=== PATIENT | female | born 1990 | race American Indian/Alaskan Native ===

== ENCOUNTER 2017-05-22 06:51 | Emergency (ER) | payer OTHER ==
[2017-05-22] MEDS ORDERED: Sodium Chloride 0.9% 1,000 ML IV STA ×2 (08:23→09:04)
[2017-05-22] MEDS ORDERED: Morphine 4 mg/ml ISec IVP STA (08:23)
--- NOTE | 2017-05-22 08:27 | ED PDOC ---
Arrival/HPI - General Chief Complaint: Back Pain Time Seen by Provider: 05/22/17 08:03 Historian: Patient - History of Present Illness Narrative History of Present Illness (Text): 05/22/17 11:00 Mahi Mancera is a 27 year old female, whose past medical history includes sickle cell disease, who presents to the emergency department complaining of diffused body pain and mild headache. Patient notes she was recently given a referral to a hemodialysis. Patient denies chest pain, shortness of breath, fever, cough, or vomiting. No other complaints were made and no pain medication was taken. Time/Duration: < week Symptom Onset: Sudden Symptom Course: Unchanged Quality: Aching Activities at Onset: Light Past Medical History - Provider Review Nursing Documentation Reviewed: Yes - Infectious Disease Hx of Infectious Diseases: None - Hematological/Oncological Hx Sickle Cell Disease: Yes - Psychiatric Hx Substance Use: No Family/Social History - Physician Review Nursing Documentation Reviewed: Yes Family/Social History: Unknown Family HX Smoking Status: Never Smoked Hx Alcohol Use: No Hx Substance Use: No Allergies/Home Meds Allergies/Adverse Reactions: Allergies No Known Allergies Allergy (Verified 05/22/17 08:22) Home Medications: Home Meds Medication Instructions Recorded Confirmed Folic Acid [Folic Acid] 1 mg PO DAILY 05/22/17 05/22/17 Review of Systems - Physician Review All systems were reviewed & negative as marked: Yes - Review of Systems Constitutional: absent: Fevers Respiratory: absent: SOB Cardiovascular: absent: Chest Pain Musculoskeletal: Myalgias Neurological: Headache Physical Exam Vital Signs Pulse Resp BP Pulse Ox 05/22/17 10:00 80 18 129/79 98 05/22/17 08:53 78 18 124/79 98 Appearance: Positive for: Well-Appearing, Non-Toxic, Comfortable Pain Distress: Mild Mental Status: Positive for: Alert and Oriented X 3 - Systems Exam Head: Present: Atraumatic, Normocephalic Pupils: Present: PERRL Extroacular Muscles: Present: EOMI Conjunctiva: Present: Normal Mouth: Present: Moist Mucous Membranes Neck: Present: Normal Range of Motion Respiratory/Chest: Present: Clear to Auscultation, Good Air Exchange. No: Respiratory Distress, Accessory Muscle Use Cardiovascular: Present: Regular Rate and Rhythm, Normal S1, S2. No: Murmurs Abdomen: Present: Normal Bowel Sounds. No: Tenderness, Distention, Peritoneal Signs Upper Extremity: Present: Normal Inspection, Normal ROM, NORMAL PULSES. No: Cyanosis, Edema Lower Extremity: Present: NORMAL PULSES, Normal ROM. No: Edema Neurological: Present: GCS=15, CN II-XII Intact, Speech Normal Skin: Present: Warm, Dry, Normal Color. No: Rashes Psychiatric: Present: Alert, Oriented x 3, Normal Insight, Normal Concentration Medical Decision Making ED Course and Treatment: 05/22/17 Plan: -- CT -- EKG -- Labs -- Morphine and Sodium Chloride -- Reassess and disposition Progress Notes: 05/22/17 11:50 Reevaluation: On reevaluation the patient feels better and is in no acute distress. I have discussed the results and plan with the patient, who expresses understanding. Patient given the opportunity to ask question, all questions were answered and there is agreement with the plan to discharge the patient. Patient is stable for discharge. Patient was instructed to follow up with physician/clinic in 1-2 days or return if symptoms persist/worsen or new concerning symptoms arise. - Lab Interpretations Lab Results: 05/22/17 08:15 05/22/17 08:15 Lab Results 05/22/17 08:15: Influenza Typ A,B (EIA) Negative for flu a/b 05/22/17 08:15: Sodium 141, Potassium 4.0, Chloride 103, Carbon Dioxide 27, Anion Gap 15, BUN 8, Creatinine 0.7, Est GFR ( Amer) > 60, Est GFR (Non- Af Amer) > 60, Random Glucose 109, Calcium 10.2, Total Bilirubin 1.5 H, AST 51 H , ALT 34, Alkaline Phosphatase 55, Lactate Dehydrogenase 660, Total Creatine Kinase 97, Troponin I < 0.01, Total Protein 8.2, Albumin 5.0 H, Globulin 3.2, Albumin/Globulin Ratio 1.5 05/22/17 08:15: WBC 8.9, RBC 4.05, Hgb 10.8 L, Hct 29.4 L, MCV 72.6 L, MCH 26.7 , MCHC 36.7, RDW 17.5 H, Plt Count 171, MPV 10.6, Gran % 80.2 H, Lymph % (Auto) 14.[address] L, [place] % (Auto) 4.9, Eos % (Auto) 0.1 L, Baso % (Auto) 0.2, Gran # 7.16 H , Lymph # 1.3, [place] # 0.4, Eos # 0.0, Baso # 0.02, Retic Count 4.9 H I have reviewed the lab results: Yes - RAD Interpretation Radiology Orders: 05/22/17 08:22 HEAD W/O CONTRAST [CT] Stat Global Compensation Analyst: Radiologist - EKG Interpretation Interpreted by ED Physician: Yes Type: 12 lead EKG - Medication Orders Current Medication Orders: Discontinued Medications Cyclobenzaprine HCl (Flexeril) 10 mg PO STAT STA Stop: 05/22/17 10:16 Last Admin: 05/22/17 10:28 Dose: 10 mg Hydromorphone HCl (Dilaudid) 1 mg IVP STAT STA Stop: 05/22/17 09:29 Last Admin: 05/22/17 09:35 Dose: 1 mg MAR Pain Assessment Document 05/22/17 09:35 [facility] (Rec: 05/22/17 09:35 [id number] Pain Reassessment Is this a pain reassessment? No Sleep Is patient sleeping during reassessment? No Presence of Pain Presence of Pain Yes Pain Scale Used Pain Scale Used Numeric IVP Administration Document 05/22/17 09:35 [facility] (Rec: 05/22/17 09:35 [id number] Charges for Administration # of IVP Administrations 1 Sodium Chloride (Sodium Chloride 0.9%) 1,000 mls @ 999 mls/hr IV .Q1H1M STA Stop: 05/22/17 09:23 Last Admin: 05/22/17 09:00 Dose: 999 mls/hr eMAR Start Stop Document 05/22/17 09:00 [facility] (Rec: 05/22/17 09:00 [id number] Intravenous Solution Start Date 05/22/17 Start Time 08:15 End Date 05/22/17 End time 09:15 Total Infusion Time 60 Sodium Chloride (Sodium Chloride 0.9%) 1,000 mls @ 999 mls/hr IV .Q1H1M STA Stop: 05/22/17 10:04 Last Admin: 05/22/17 09:25 Dose: 999 mls/hr eMAR Start Stop Document 05/22/17 09:25 [facility] (Rec: 05/22/17 09:26 [id number]) Intravenous Solution Start Date 05/22/17 Start Time 09:25 End Date 05/22/17 End time 10:25 Total Infusion Time 60 Ketorolac Tromethamine (Toradol) 30 mg IVP STAT STA Stop: 05/22/17 10:16 Last Admin: 05/22/17 10:27 Dose: 30 mg MAR Pain Assessment Document 05/22/17 10:27 [facility]WO (Rec: 05/22/17 10:28 [id number]) Pain Reassessment Is this a pain reassessment? No Sleep Is patient sleeping during reassessment? Yes IVP Administration Document 05/22/17 10:27 [facility] (Rec: 05/22/17 10:28 [id number]) Charges for Administration # of IVP Administrations 1 Morphine Sulfate (Morphine) 4 mg IVP STAT STA Stop: 05/22/17 08:24 Last Admin: 05/22/17 09:00 Dose: 4 mg MAR Pain Assessment Document 05/22/17 09:00 EWO (Rec: 05/22/17 09:00 [id number]) Pain Reassessment Is this a pain reassessment? No Sleep Is patient sleeping during reassessment? No Presence of Pain Presence of Pain Yes Pain Scale Used Pain Scale Used Numeric Description Description Constant Intensity of Pain at present 8 IVP Administration Document 05/22/17 09:00 EWO (Rec: 05/22/17 09:00 [id number]) Charges for Administration # of IVP Administrations 1 - Scribe Statement The provider has reviewed the documentation as recorded by the Scribe Jemma Elizabeth Provider Scribe Attestation: All medical record entries made by the Scribe were at my direction and personally dictated by me. I have reviewed the chart and agree that the record accurately reflects my personal performance of the history, physical exam, medical decision making, and the department course for this patient. I have also personally directed, reviewed, and agree with the discharge instructions and disposition. Disposition/Present on Arrival - Present on Arrival Any Indicators Present on Arrival: No History of DVT/PE: No History of Uncontrolled Diabetes: No Urinary Catheter: No History of Decub. Ulcer: No History Surgical Site Infection Following: None - Disposition Have Diagnosis and Disposition been Completed?: Yes Diagnosis: Sickle cell disease Disposition: HOME/ ROUTINE Disposition Time: 10:30 Condition: IMPROVED Discharge Instructions (ExitCare): Sickle Cell Crisis (ED) Additional Instructions: Thank you for letting us take care of you today. The emergency medical care you received today was directed at your acute symptoms. If you were prescribed any medication, please fill it and take as directed. It may take several days for your symptoms to resolve. Return to the Emergency Department if your symptoms worsen, do not improve, or if you have any other problems. Please contact your doctor or call one of the physicians/clinics you have been referred to that are listed on the Patient Visit Information form that is included in your discharge packet. Bring any paperwork you were given at discharge with you along with any medications you are taking to your follow up visit. Our treatment cannot replace ongoing medical care by a primary care provider (PCP) outside of the emergency department. Thank you for allowing the [facility] team to be part of your care today. Follow up with your house carpenter in 2-3 days for re-evaluation and further management. Prescriptions: Cyclobenzaprine [Cyclobenzaprine HCl] 10 mg PO Q8 PRN #20 tab PRN Reason: Muscle Spasm Hydrocodone/Ibuprofen [Hydrocodone-Ibuprofen 7.5-200] 1 each PO Q6 PRN #15 tablet PRN Reason: Pain, Severe (8-10) Referrals: PCP,NO [Primary Care Provider] - Follow up with primary Forms: [employer] (M[place]ese)
[2017-05-22 08:48] LABS: BASO # 0.02 K/mm3 (0.0-2.0); BASO % 0.2 % (0.0-3.0); EOS % 0.1 % (1.5-5.0); GRAN # 7.16 (1.4-6.5); GRAN % 80.2 % (50.0-68.0); HEMOGLOBIN 10.8 g/dL (12.0-16.0); LYMPH # 1.3 (1.2-3.4); LYMPH % 14.6 % (22.0-35.0); MEAN CELL VOLUME 72.6 fl (80.0-105.0); MEAN CORPUSCULAR HEMOGLOBIN 26.7 pg (25.0-35.0); MEAN CORPUSCULAR HGB CONC 36.7 g/dl (31.0-37.0); MEAN PLATELET VOLUME 10.6 fl (7.0-11.0); MONO # 0.4 (0.1-0.6); MONO % 4.9 % (1.0-6.0); PLATELET COUNT 171 10^3/uL (120.0-450.0); RBC 4.05 10^6/uL (3.5-6.1); RED CELL DISTRIBUTION WIDTH 17.5 % (11.5-14.5); WHITE BLOOD COUNT 8.9 10^3/ul (4.5-11.0)
[2017-05-22 08:56] LABS: TROPONIN I < 0.01 ng/mL
[2017-05-22 09:09] LABS: ALB/GLOB RATIO 1.5 (1.1-1.8); ALT/SGPT 34 U/L (7-56); AST/SGOT 51 U/L (14-36); BLOOD UREA NITROGEN 8 mg/dL (7-21); CALCIUM 10.2 mg/dL (8.4-10.5); GFR AFRICAN-AMERICAN > 60; GFR NON-AFRICAN AMERICAN > 60
[2017-05-22] MEDS ORDERED: HYDROmorphone 0.5 mg/0.5 ml ISec IVP STA (09:28)
--- NOTE | 2017-05-22 10:03 | CT ---
PROCEDURE: CT HEAD WITHOUT CONTRAST. HISTORY: r/o ICH COMPARISON: None available. TECHNIQUE: Axial computed tomography images were obtained through the head/brain without intravenous contrast. Radiation dose: Total exam DLP = 946 mGy-cm. This CT exam was performed using one or more of the following dose reduction techniques: Automated exposure control, adjustment of the mA and/or kV according to patient size, and/or use of iterative reconstruction technique. FINDINGS: HEMORRHAGE: No intracranial hemorrhage. BRAIN: No mass effect or edema. No atrophy or chronic microvascular ischemic changes. VENTRICLES: Unremarkable. No hydrocephalus. CALVARIUM: Unremarkable. PARANASAL SINUSES: Unremarkable as visualized. No significant inflammatory changes. MASTOID AIR CELLS: Unremarkable as visualized. No inflammatory changes. OTHER FINDINGS: None. IMPRESSION: No acute finding
[2017-05-22 11:54] VITALS: BP 129/79; PULSE 80; RESP 18; O2SAT 98
== END 2017-05-22 12:03 | disposition home or self-care (01) ==
LOC: ED 06:51
DX: D57.00 Hb-SS disease with crisis, unspecified (principal)
CPT/HCPCS: 70450; 80053; 82550; 83615; 84484; 85025; 85044; 87804; 96361; 96374; 96375; 99283; J1170; J1885; J2270; J7040

== ENCOUNTER 2017-05-22 22:32 | Emergency (ER) | payer OTHER ==
[2017-05-22] MEDS ORDERED: HYDROmorphone 0.5 mg/0.5 ml ISec IM STA (23:51)
--- NOTE | 2017-05-23 | ED PDOC ---
Arrival/HPI - General Chief Complaint: Pain, Chronic Time Seen by Provider: 05/22/17 23:29 Historian: Patient, Spouse - History of Present Illness Narrative History of Present Illness (Text): 05/22/17 23:59 Mahi Mancera is a 27 year old female, whose past medical history includes sickle cell disease, who presents to the emergency department complaining of diffused body pain. Patient stated that pain return again, and Vicoprofen is not helping with her body ache. Patient denies new complains. Past Medical History - Provider Review Nursing Documentation Reviewed: Yes - Infectious Disease Hx of Infectious Diseases: None - Hematological/Oncological Hx Sickle Cell Disease: Yes - Psychiatric Hx Substance Use: No - Anesthesia Hx Anesthesia: No Family/Social History - Physician Review Nursing Documentation Reviewed: Yes Family/Social History: Other (noncontributory) Smoking Status: Never Smoked Hx Alcohol Use: No Hx Substance Use: No Allergies/Home Meds Allergies/Adverse Reactions: Allergies No Known Allergies Allergy (Verified 05/22/17 23:27) Home Medications: Home Meds Medication Instructions Recorded Confirmed Folic Acid [Folic Acid] 1 mg PO DAILY 05/22/17 05/22/17 Review of Systems - Review of Systems Constitutional: Normal. absent: Fatigue, Weight Change, Fevers Eyes: Normal ENT: Normal. absent: Sore Throat Respiratory: Normal. absent: SOB, Cough Cardiovascular: Normal. absent: Chest Pain Gastrointestinal: Normal. absent: Abdominal Pain, Nausea, Vomiting Genitourinary Female: Normal. absent: Dysuria, Frequency, Hematuria Musculoskeletal: Arthralgias, Myalgias Skin: Normal. absent: Rash Neurological: Normal. absent: Headache, Focal Weakness, Gait Changes, Speech Changes, Facial Droop, Disequilibrium Endocrine: Normal Hemo/Lymphatic: Normal Psychiatric: Normal Physical Exam Vital Signs Temp Pulse Resp BP Pulse Ox 05/22/17 23:30 98.3 F 87 17 122/73 98 Temperature: Afebrile Blood Pressure: Normal Pulse: Regular Respiratory Rate: Normal Appearance: Positive for: Well-Appearing, Non-Toxic, Comfortable Pain Distress: None Mental Status: Positive for: Alert and Oriented X 3 - Systems Exam Head: Present: Atraumatic, Normocephalic Pupils: Present: PERRL Extroacular Muscles: Present: EOMI Conjunctiva: Present: Normal Mouth: Present: Moist Mucous Membranes Neck: Present: Normal Range of Motion Respiratory/Chest: Present: Clear to Auscultation, Good Air Exchange. No: Respiratory Distress, Accessory Muscle Use Cardiovascular: Present: Regular Rate and Rhythm, Normal S1, S2. No: Murmurs Abdomen: Present: Normal Bowel Sounds. No: Tenderness, Distention, Peritoneal Signs Back: Present: Normal Inspection Upper Extremity: Present: Normal Inspection. No: Cyanosis, Edema Lower Extremity: Present: Normal Inspection. No: Edema Neurological: Present: GCS=15, CN II-XII Intact, Speech Normal, Motor Func Grossly Intact, Normal Sensory Function, Normal Cerebellar Funct, Gait Normal, Memory Normal Skin: Present: Warm, Dry, Normal Color. No: Rashes Psychiatric: Present: Alert, Oriented x 3, Normal Insight, Normal Concentration Medical Decision Making ED Course and Treatment: 05/23/17 00:08 stated he called in advanced to this ED requesting patient having a stronger pain medication. Lorna ED clerical secretary stated this patient called ED asking to know who is the ED physician and nurse commissions manager on duty tonight. When I entered patient's room. Patient was sleeping comfortable in no acute distress. During medical interview, patient stated requesting Dilaudid for pain , since Morphine did not work early this morning which it was her previous ED visit. Patient and requested stronger pain medication for pain, stronger than Vicoprofen. and patient appears to have a drug seeking behavior. Reticulocytes count was 4.9, which is her normal baseline. Labs and influenza tests were within patient's baseline. 05/23/17 00:22 Re-evaluation. Patient is sleeping at this time. I woke up patient. Patient feels better. Discussed results and plan with patient who expresses understanding. All questions answered and there is agreement with the plan to discharge home with instructions. Patient stable for discharge. Return if symptoms persist or worsen. I will order Percocet this time since patient is not well known to this ED. Patient has a normal gait. No neuro focal deficits. Re-evaluation Time: 00:13 Reassessment Condition: Re-examined, Improved - Lab Interpretations I have reviewed the lab results: Yes (from this morning) - Medication Orders Current Medication Orders: Discontinued Medications Hydromorphone HCl (Dilaudid) 1 mg IM STAT STA Stop: 05/22/17 23:52 Last Admin: 05/23/17 00:12 Dose: Disposition/Present on Arrival - Present on Arrival Any Indicators Present on Arrival: No History of DVT/PE: No History of Uncontrolled Diabetes: No Urinary Catheter: No History of Decub. Ulcer: No History Surgical Site Infection Following: None - Disposition Have Diagnosis and Disposition been Completed?: Yes Diagnosis: Musculoskeletal pain Disposition: HOME/ ROUTINE Disposition Time: 00:23 Patient Plan: Discharge Patient Problems: Current Active Problems Problem Status Onset Drug-seeking behavior Acute Musculoskeletal pain Acute Condition: GOOD Discharge Instructions (ExitCare): Musculoskeletal Pain (ED) Additional Instructions: Call your private doctor for follow up visit in 1-2 days. Call private tabulating machine mechanic on Tuesday for revaluation. Take medication as instructed. Return to emergency if symptoms worsen. Prescriptions: oxyCODONE/Acetaminophen [Percocet 5/325 mg Tab] 1 tab PO Q6H PRN #10 tab PRN Reason: Pain, Severe (8-10) Referrals: Giselle Peres MD [Staff Provider] - Follow up with primary Forms: [facility] (Mongolian), WORK NOTE
[2017-05-23 00:07] VITALS: BP 122/73; PULSE 87; RESP 17; TEMP 98.3; O2SAT 98
[2017-05-23] MEDS ORDERED: HYDROmorphone 2 mg/ml ISec ONE (00:10)
== END 2017-05-23 01:22 | disposition home or self-care (01) ==
LOC: ED 22:32
DX: M79.1 Myalgia (principal)
CPT/HCPCS: 99283; J1170